=== PATIENT | male | born 1945 | race Caucasian/White ===

== ENCOUNTER 2018-09-18 19:06 | Inpatient (IN) | payer MEDICARE, MEDICAID, OTHER ==
[2018-09-18 21:12] LABS: ADD MAN DIFF? NO; BASOPHILS % 0.6 % (0.0-2.0); EOSINOPHILS # 0.1 10^3/ul (0.0-0.5); EOSINOPHILS % 2.3 % (0.0-7.0); HEMOGLOBIN 15.1 g/dl (14.0-18.0); LYMPHOCYTES # 1.3 10^3/ul (0.8-2.9); LYMPHOCYTES % 24.4 % (15.0-51.0); MEAN CORPUSCULAR HEMOGLOBIN 32.3 pg (29.0-33.0); MEAN CORPUSCULAR HGB CONC 33.6 g/dl (32.0-37.0); MEAN CORPUSCULAR VOLUME 96.2 fl (82.0-101.0); MEAN PLATELET VOLUME 9.6 fl (7.4-10.4); MONOCYTE # 0.5 10^3/ul (0.3-0.9); MONOCYTES % 10.5 % (0.0-11.0); NEUTROPHIL # 3.2 10^3/ul (1.6-7.5); PLATELET COUNT 168 10^3/UL (140-415); RED BLOOD COUNT 4.68 10^6/ul (4.70-6.10); RED CELL DISTRIBUTION WIDTH 12.8 % (11.5-14.5)
[2018-09-18 21:12] LABS: WHITE BLOOD COUNT 5.2 10^3/ul (4.8-10.8)
[2018-09-18 21:32] LABS: PROTIME 12.3 Sec (11.9-14.9)
[2018-09-18 21:33] LABS: PARTIAL THROMBOPLASTIN TIME 30.5 Sec (23.0-35.0)
[2018-09-18 21:39] LABS: ALANINE AMINOTRANSFERASE 20 IU/L (13-69); ALBUMIN 3.8 g/dl (3.3-4.9); ALBUMIN/GLOBULIN RATIO 1.35; ALKALINE PHOSPHATASE 79 IU/L (42-121); ANION GAP 6 (5-13); ASPARTATE AMINO TRANSFERASE 23 IU/L (15-46); BILIRUBIN,INDIRECT 0.3 mg/dl (0-1.1); BILIRUBIN,TOTAL 0.3 mg/dl (0.2-1.3); BLOOD UREA NITROGEN 15 mg/dl (7-20); CALCIUM 8.9 mg/dl (8.4-10.2); CARBON DIOXIDE 30 mmol/L (21-31); CHLORIDE 108 mmol/L (97-110); CREATININE 0.72 mg/dl (0.61-1.24); Estimated GFR > 60 mL/min (>60); GLUCOSE 112 mg/dl (70-220); POTASSIUM 3.2 mmol/L (3.5-5.1); SODIUM 144 mmol/L (135-144); TOTAL PROTEIN 6.6 g/dl (6.1-8.1)
[2018-09-18 21:50] LABS: TROPONIN-I < 0.012 ng/ml (0.000-0.120)
[2018-09-18] MEDS: SOD CHLORIDE 0.9% 100 ML (22:51)
[2018-09-18] MEDS: IOHEXOL 100 ML (22:51)
[2018-09-18] MEDS: ONDANSETRON 4 MG INJ IV (23:44)
[2018-09-18] MEDS: morphine 4 MG/ML VIAL IV (23:44)
[2018-09-18] MEDS: ASPIRIN 325 MG TAB PO (23:44)
[2018-09-19] MEDS ORDERED: NACL 0.9% 3 ML SYG IV (02:30)
[2018-09-19] MEDS ORDERED: ALBUTEROL/IPRATROPIUM (NEB) 3 ML AMP HHN (02:30)
[2018-09-19] MEDS ORDERED: ONDANSETRON 4 MG INJ IV (02:30)
[2018-09-19] MEDS: morphine 4 MG/ML VIAL IV (03:47)
[2018-09-19] MEDS: hydrALAzine 20 MG INJ IV (04:48)
[2018-09-19] MEDS: POTASSIUM CHLORIDE 50 ML IVPB ×2 (04:48→05:30)
[2018-09-19] MEDS: POTASSIUM CHLORIDE 30 MEQ in SOD CHLORIDE 0.9% 1,000 ML IV ×2 (06:00→09:57)
[2018-09-19 06:31] LABS: ADD MAN DIFF? NO
[2018-09-19 06:32] LABS: BASOPHILS % 0.7 % (0.0-2.0); EOSINOPHILS # 0.2 10^3/ul (0.0-0.5); EOSINOPHILS % 4.3 % (0.0-7.0); HEMATOCRIT 48.3 % (42.0-52.0); HEMOGLOBIN 16.4 g/dl (14.0-18.0); LYMPHOCYTES # 1.9 10^3/ul (0.8-2.9); MEAN CORPUSCULAR HEMOGLOBIN 32.3 pg (29.0-33.0); MEAN CORPUSCULAR VOLUME 95.3 fl (82.0-101.0); MEAN PLATELET VOLUME 9.8 fl (7.4-10.4); MONOCYTE # 0.6 10^3/ul (0.3-0.9); MONOCYTES % 10.8 % (0.0-11.0); NEUTROPHIL # 2.7 10^3/ul (1.6-7.5); NEUTROPHILS % 48.8 % (39.0-77.0); PLATELET COUNT 172 10^3/UL (140-415); RED BLOOD COUNT 5.07 10^6/ul (4.70-6.10); RED CELL DISTRIBUTION WIDTH 12.8 % (11.5-14.5)
[2018-09-19 06:32] LABS: WHITE BLOOD COUNT 5.5 10^3/ul (4.8-10.8)
[2018-09-19 06:57] LABS: CREATINE KINASE 49 IU/L (23-200)
[2018-09-19 07:07] LABS: ALANINE AMINOTRANSFERASE 17 IU/L (13-69); ALBUMIN 4.1 g/dl (3.3-4.9); ALBUMIN/GLOBULIN RATIO 1.57; ALKALINE PHOSPHATASE 72 IU/L (42-121); ANION GAP 9 (5-13); ASPARTATE AMINO TRANSFERASE 32 IU/L (15-46); BILIRUBIN,INDIRECT 0.5 mg/dl (0-1.1); BILIRUBIN,TOTAL 0.5 mg/dl (0.2-1.3); BLOOD UREA NITROGEN 13 mg/dl (7-20); CALCIUM 9.1 mg/dl (8.4-10.2); CARBON DIOXIDE 27 mmol/L (21-31); CHLORIDE 109 mmol/L (97-110); CHOLESTEROL 205 mg/dl (100-200); CK INDEX 2.9; CK-MB 1.42 ng/ml (0.0-2.4); CREATININE 0.62 mg/dl (0.61-1.24); Estimated GFR > 60 mL/min (>60); GLUCOSE 73 mg/dl (70-220); HDL CHOLESTEROL 41 mg/dl (31-75); LDL CHOLESTEROL,CALCULATED 124 mg/dl; MAGNESIUM 1.7 mg/dl (1.7-2.5); POTASSIUM 3.5 mmol/L (3.5-5.1); SODIUM 145 mmol/L (135-144); TOTAL PROTEIN 6.7 g/dl (6.1-8.1); TRIGLYCERIDES 200 mg/dl (0-149)
[2018-09-19 07:11] LABS: TROPONIN-I < 0.012 ng/ml (0.000-0.120)
[2018-09-19 07:35] LABS: HEMOGLOBIN A1C 5.3 % (0-5.9)
[2018-09-19] MEDS: ASPIRIN 81 MG TAB PO (09:56)
[2018-09-19] MEDS: ATENOLOL 50 MG TAB PO ×2 (09:56→22:12)
[2018-09-19] MEDS: HEPARIN 5,000 UNIT/1 ML VIAL SC ×2 (10:00→22:52)
[2018-09-19] MEDS: ACETAMINOPHEN 325 MG TAB PO ×2 (10:20→16:36)
[2018-09-19 12:29] LABS: CREATINE KINASE 38 IU/L (23-200)
[2018-09-19 12:40] LABS: CK INDEX 3.3; CK-MB 1.25 ng/ml (0.0-2.4); TROPONIN-I < 0.012 ng/ml (0.000-0.120)
[2018-09-19] MEDS ORDERED: ATORVASTATIN 40 MG TAB PO (21:00)
[2018-09-19] MEDS: ATORVASTATIN 40 MG TAB PO (22:12)
[2018-09-19] MEDS: ZOLPIDEM 5 MG TAB PO (22:16)
[2018-09-20] MEDS: hydrALAzine 20 MG INJ IV (00:30)
[2018-09-20] MEDS: ACETAMINOPHEN 325 MG TAB PO (01:04)
[2018-09-20] MEDS: LORAZEPAM 2 MG INJ IV (05:48)
[2018-09-20 06:07] LABS: ADD MAN DIFF? NO
[2018-09-20 06:11] LABS: BASOPHIL # 0.1 10^3/ul (0.0-0.1); BASOPHILS % 0.7 % (0.0-2.0); EOSINOPHILS # 0.2 10^3/ul (0.0-0.5); HEMATOCRIT 45.3 % (42.0-52.0); HEMOGLOBIN 15.7 g/dl (14.0-18.0); LYMPHOCYTES # 1.2 10^3/ul (0.8-2.9); LYMPHOCYTES % 16.2 % (15.0-51.0); MEAN CORPUSCULAR HEMOGLOBIN 32.5 pg (29.0-33.0); MEAN CORPUSCULAR HGB CONC 34.7 g/dl (32.0-37.0); MEAN CORPUSCULAR VOLUME 93.8 fl (82.0-101.0); MEAN PLATELET VOLUME 9.6 fl (7.4-10.4); MONOCYTE # 0.7 10^3/ul (0.3-0.9); MONOCYTES % 9.7 % (0.0-11.0); NEUTROPHIL # 5.3 10^3/ul (1.6-7.5); PLATELET COUNT 201 10^3/UL (140-415); RED BLOOD COUNT 4.83 10^6/ul (4.70-6.10); RED CELL DISTRIBUTION WIDTH 12.4 % (11.5-14.5)
[2018-09-20 06:11] LABS: WHITE BLOOD COUNT 7.4 10^3/ul (4.8-10.8)
[2018-09-20 06:34] LABS: AMPHETAMINE/METHAMPHETAMINE Negative (NEGATIVE); BARBITURATES Negative (NEGATIVE); BENZODIAZEPINES Negative (NEGATIVE); CANNABINOIDS Positive (NEGATIVE); COCAINE Negative (NEGATIVE); OPIATES Positive (NEGATIVE)
[2018-09-20 06:45] LABS: ANION GAP 7 (5-13); BLOOD UREA NITROGEN 13 mg/dl (7-20); CALCIUM 9.2 mg/dl (8.4-10.2); CARBON DIOXIDE 26 mmol/L (21-31); CHLORIDE 109 mmol/L (97-110); CREATININE 0.56 mg/dl (0.61-1.24); Estimated GFR > 60 mL/min (>60); GLUCOSE 103 mg/dl (70-220); MAGNESIUM 1.7 mg/dl (1.7-2.5); PHOSPHORUS 2.4 mg/dl (2.5-4.9); POTASSIUM 3.5 mmol/L (3.5-5.1); SODIUM 142 mmol/L (135-144)
[2018-09-20] MEDS: ATENOLOL 50 MG TAB PO (09:52)
[2018-09-20] MEDS: ASPIRIN 81 MG TAB PO (09:53)
[2018-09-20] MEDS: HEPARIN 5,000 UNIT/1 ML VIAL SC (10:09)
[2018-09-20 15:10] LABS: RAPID PLASMA REAGIN NONREACTIVE (NR)
== END 2018-09-20 10:20 | disposition home or self-care (01) | DRG 66 ==
LOC: E/R 19:06 → TEL 22:39
DX: I63.9 Cerebral infarction, unspecified (principal); E78.5 Hyperlipidemia, unspecified; I10 Essential (primary) hypertension; I65.21 Occlusion and stenosis of right carotid artery; I65.01 Occlusion and stenosis of right vertebral artery; F17.210 Nicotine dependence, cigarettes, uncomplicated; Z86.73 Personal history of transient ischemic attack (TIA), and cerebral infarction without residual deficits
CPT/HCPCS: 36415; 70450; 70496; 70498; 70551; 80048; 80053; 80061; 80307; 82550; 82553; 83036; 83735; 84100; 84443; 84484; 85025; 85610; 85651; 85730; 86592; 87081; 92610; 93005; 93306; 97110; 97116; 97162; 97530; 99285-25